=== PATIENT | female | born 1960 | race Caucasian/White ===

== ENCOUNTER 2019-09-03 12:38 | Outpatient (CLI) | payer OTHER, SELFPAY ==
--- NOTE | ~2019-09-03 | DEXA_ITS ---
Bone Density Report Name: Lolita Castillo Age: 58 Sex: Female Ethnicity: White Date of : 1960 Indication: postmenopausal; height loss; hysterectomy; Referring Provider: RALF TOWNSEND Study: Bone densitometry was performed. Exam Date: September 03, 2019 Accession number: [id number] Bone Density: Region BMD T-score Z-score Classification AP Spine (L1-L4) 0.724 -2.9 -1.5 Osteoporosis Femoral Neck (Left) 0.531 -2.9 -1.6 Osteoporosis Total Hip (Left) 0.731 -1.7 -0.7 Osteopenia Total Hip Bilateral Avg 0.723 -1.8 -0.8 Osteopenia Femoral Neck (Right) 0.531 -2.9 -1.6 Osteoporosis Total Hip (Right) 0.715 -1.9 -0.9 Osteopenia World Health Organization criteria for BMD impression classify patients as: Normal (T-score at or above -1.0), Osteopenia (T-score between -1.0 and -2.5), or Osteoporosis (T-score at or below -2.5). 10-year Fracture Risk: FRAX not reported because: Some T-score for Spine Total or Hip Total or Femoral Neck at or below -2.5 Clinical Information Provided by Patient: Smokes Has used the following medications: Vitamin D, Calcium Has the following medical conditions: Hysterectomy Patient maximum height was 67 Menopause Age: 24 No regular weight bearing exercise Drinks caffeinated beverages Onset of menses at age 10 Number of children 3 Impression: The patient has osteoporosis, based on the Total Spine T-score. The patient has risk factors, including: smoking. Discussion: INCREASED RISK OF FRACTURE. BONE DENSITY IS UNDESIRABLY LOW AT ONE OR MORE SKELETAL SITES, CONSISTENT WITH POSTMENOPAUSAL OSTEOPOROSIS. This patient's lowest T-score meets the World Health Organization's (WHO) criteria for osteoporosis at one or more sites (T-score -2.5 or below). In untreated patients, the risk of osteoporotic fracture increases approximately two-fold for each 1.0 SD decrease in T-score. Low bone density is not the only risk factor for fracture; also consider factors such as patient's age, frailty or poor health, risk of falling, risk of injury, previous osteoporotic fracture, family history of osteoporosis, cigarette smoking, low body weight, etc. Not everyone with low bone mineral density has osteoporosis; osteomalacia and other metabolic bone disorders should also be considered. Patients who have osteoporosis should be evaluated for specific diseases and conditions (secondary causes) that may cause or contribute to bone loss. The [place] [employer]ocr[employer] (AACE) and National Osteoporosis Foundation (NOF) recommend pharmacologic intervention for all postmenopausal women whose T-score is in this range. The patient should follow a healthful lifestyle (good nutrition with adequate calcium and vitamin D, and appropriate weight-bearing exercise). Follow-Up: Consider a repeat BMD and Vertebral Fractu
== END 2019-09-03 12:39 | disposition home or self-care (01) ==
PROVIDERS: PCP Internal Medicine; Visit Provider Orthopaedic Surgery
DX: M81.0 Age-related osteoporosis without current pathological fracture (principal); M85.852 Other specified disorders of bone density and structure, left thigh; M85.851 Other specified disorders of bone density and structure, right thigh
CPT/HCPCS: 77080

== ENCOUNTER 2019-09-23 09:16 | Outpatient (CLI) | payer OTHER, SELFPAY ==
--- NOTE | 2019-09-23 09:18 | ECG_ITS ---
Measurements Intervals [place] Rate: 63 P: 41 MA: 153 QRS: 21 QRSD: 105 T: 29 QT: 409 QTc: 422 Interpretive Statements SINUS RHYTHM INCOMPLETE RIGHT BUNDLE BRANCH BLOCK BASELINE ARTIFACT- I, II, III, AVR, AVL, AVF, V1-V6 BORDERLINE ECG Electronically Signed On 09-23-2019 9:30:54 CDT by Nahun Box D.O.
[2019-09-23 10:02] LABS: Blood Urea Nitrogen 15 mg/dL (7-17); Calcium 9.5 mg/dL (8.4-10.2); Carbon Dioxide 30 mmol/L (22-30); Chloride 102 mmol/L (98-107); Estimated Glomerular Filt Rate > 60; Glucose 103 mg/dL (65-105); Potassium 3.9 mmol/L (3.4-5.0); Sodium 139 mmol/L (137-145)
== END 2019-09-23 09:17 | disposition home or self-care (01) ==
LOC: ANHSURGERY 09:18
PROVIDERS: Anesthesiology; PCP Internal Medicine; Visit Provider Orthopaedic Surgery
DX: Z01.818 Encounter for other preprocedural examination (principal); I10 Essential (primary) hypertension
CPT/HCPCS: 36415; 80048; 93005

== ENCOUNTER 2019-09-30 01:36 | Day surgery (SDC) | payer OTHER, SELFPAY ==
[2019-09-16 10:26] VITALS: BMI 24.2
[2019-09-30] VITALS (8 sets, daily range): BP systolic 117–137; BP diastolic 69–75; PULSE 61–74; RESP 12–16; TEMP 36.6–36.7; O2SAT 92–100
[2019-09-30] MEDS: LACTATED RINGERS 1,000 ML 30 ML IV CONT ×2 (06:45→08:13)
--- NOTE | 2019-09-30 06:50 | WPDANESEPPF ---
Anes - Initial Pre Proc Eval Procedure: Operation Date: 09/30/19 07:30 Proposed Procedures p Debridement Left Lateral Epicondyle - Chi Lynch MD Date/Time: 09/30/19 06:50 Surgeon: Chi Lynch MD Pre Op Diagnosis: Left Lateral Epicondylitis Patient Data Age: 58 Gender: F Height: 5 ft 6 in Weight: 70.9 kg Allergies Allergy/AdvReac Type Severity Reaction Status Date / Time No Known Allergies Allergy Verified 09/30/19 06:25 Home Medications Medication Instructions Recorded Confirmed Type aspirin 81 mg tablet,delayed 81 mg PO DAILY 09/11/19 09/16/19 History release carvedilol 12.5 mg tablet 12.5 mg PO Q12H 09/11/19 09/16/19 History cholecalciferol (vitamin D3) 1,250 50,000 unit PO WEEKLY 09/11/19 09/16/19 History mcg (50,000 unit) capsule mecobalamin (vitamin B12) 1,000 1,000 mcg PO DAILY 09/11/19 09/16/19 History mcg chewable tablet valsartan-hydrochlorothiazide 1 tablet PO DAILY 09/16/19 09/16/19 History Patient hx anesthesia problems: none Family hx anesthesia problems: none PMFSH Past Medical History Medical History Anxiety GERD (gastroesophageal reflux disease) Hypertension Osteoporosis Surgical History Surgical History History of carpal tunnel surgery Right hand-2018 Dr. Lynch History of hysterectomy 1987 History of neck surgery Fusion-2004 Dr. Segundo Trigger finger of right hand 2016 Dr. Hylton Trigger thumb, right thumb 2018 Dr. Lynch Family History Family History Mother Diabetes mellitus Hypertension Cerebrovascular accident Heart disease Sibling Hypertension Lupus Cancer Father Cancer Heart disease Kidney disease Social History Social History Smoking status: Current every day smoker Tobacco type: cigarettes Additional smoking assessment comments: Smoking since 1975 Alcohol intake: never Additional living arrangements comments: Sister-Gina Bermeo, Grandson- Patrick Castillo Gender identity (if verbalized by the patient): Female Anes - Eval Final PreProcedure Day of Procedure 09/30/19 06:50 Patient weight: normal Heart: regular rate and rhythm Lungs: decreased breath sounds Airway: Mallampati scale class II Neurological: alert and oriented Last oral intake: >/= 8 hours ASA classification: III Emergent: no Anesthetic plan: proceed Anesthesia type and monitoring: general LMA and standard monitoring Informed Consent: The patient's anesthetic plan and its attendant risks and benefits were discussed with the patient/family/POA. Questions were solicited and answers provided to the satisfaction of the patient/family/POA.
[2019-09-30] MEDS: SCOPOLAMINE 1.5 MG PATCH TRANSDERM (06:54)
--- NOTE | 2019-09-30 07:13 | WPDHPUPDATE1 ---
History and Physical Update Update Date/Time: 09/30/19 07:13 History and Physical has been reviewed, including an updated exam of the patient. There are NO changes in the patient's condition. Risks, benefits, and alternatives have been discussed and questions answered. Patient agrees to proceed with procedure.
[2019-09-30] MEDS: ceFAZolin 2 GM/D5W 50 ML 2 GM/50 ML BAG IVPB (07:23)
[2019-09-30] MEDS: BUPIVACAINE/EPINEPHRINE 0.25% 50 ML VIAL INFILTRATE (08:00)
--- NOTE | 2019-09-30 08:25 | PM.PROC ---
Procedure Note - Detailed Date of procedure: 09/30/19 Pre-op diagnosis: Left Lateral Epicondylitis Post-op diagnosis: same Procedure performed: Debridement left lateral epicondyle with partial epicondylectomy Description of procedure: Patient was identified proper site identified. She was taken to the operating room and transferred to the OR table placing her supine taking care to pad her torso and extremities. After general anesthetic induction and intubation, a nonsterile tourniquet was placed high in the left arm. Left upper extremity was prepped and draped in the usual sterile fashion. Extremities exsanguinated and the tourniquet was inflated to 200 mmHg remaining up for about 20 minutes. Several cc of 0.25% Marcaine and epinephrine solution was injected into the subcutaneous tissue in the area of the incision. A longitudinal incision was made over the common extensor origin at the left lateral condyle. Subcutaneous tissue was sharply dissected down to the deep fascia. The fascia was divided exposing the common extensor origin. There is an area of hyperemia and degenerative tendon consistent with this condition. Longitude incision was made in line with fibers of the tendon and a 10 was also released off the medial epicondyle. Degenerative tissue was removed and prominent portion medial epicondyle was removed with a rongeur. The wound was irrigated with sterile antibiotic solution. The tendon edges reapproximated with four 0 Monocryl suture. The deeper layers of the subcu reapproximated for Monocryl. Skin reapproximated with three 0 V lock and tissue adhesive. Sterile dressing was applied. Tourniquet was released. She was awakened, extubated and taken to recovery area in stable condition. There were no known intraoperative complications. Estimated blood loss was negligible. She received perioperative antibiotics. Anesthesia: GLMA Surgeon: Chi Lynch MD Assistant Corporate Controller: Honey Swanson Estimated blood loss (mL): 1 Tourniquet time (min): 20 Drains: No Packing: No Pathology: none sent Complications: No immediate complications Condition: stable Disposition: PACU
== END 2019-09-30 10:02 | disposition home or self-care (01) ==
PROVIDERS: PCP Internal Medicine; Visit Provider Orthopaedic Surgery
PROC: (CPT 24110; principal; 2019-09-30 07:30)
DX: M77.12 Lateral epicondylitis, left elbow (principal); I10 Essential (primary) hypertension; K21.9 Gastro-esophageal reflux disease without esophagitis; M81.0 Age-related osteoporosis without current pathological fracture; F41.9 Anxiety disorder, unspecified; Z79.82 Long term (current) use of aspirin; Z98.1 Arthrodesis status; F17.210 Nicotine dependence, cigarettes, uncomplicated
CPT/HCPCS: 24359; A4565; A9270; J0690; J1100; J1170; J2250; J2405; J2704; J3010; J7120

== ENCOUNTER 2022-12-07 10:06 | Outpatient (CLI) | payer MEDICARE, MEDICAID, SELFPAY ==
--- NOTE | 2022-12-07 10:59 | ECG_ITS ---
Measurements Intervals [place] Rate: 51 P: -7 MT: 306 QRS: 262 QRSD: 108 T: 42 QT: 428 QTc: 397 Interpretive Statements SINUS BRADYCARDIA INCOMPLETE RIGHT BUNDLE BRANCH BLOCK BASELINE ARTIFACT- I, II, III, AVR, AVL, AVF, V1-V6 BORDERLINE ECG COMPARED TO ECG 09/23/2019 09:44:36 HEART RATE HAS DECREASED Electronically Signed On 12-07-2022 12:06:44 CDT by Nahun Box D.O.
[2022-12-07 11:54] LABS: Basophils Percent Auto 0.3 % (0.2-1.2); Eosinophils Absolute Auto 0.1 K/mm3 (0-0.3); Eosinophils Percent Auto 1.2 % (0-4.4); Hematocrit 37.2 % (37.0-47.0); Hemoglobin 11.8 g/dL (12.0-15.0); Immature Granulocyte Absolute 0.04 K/mm3 (0.00-0.031); Immature Granulocyte Percent A 0.6 % (0-0.5); Lymphocytes Absolute Auto 1.82 K/mm3 (0.9-3.2); Lymphocytes Percent Auto 27.5 % (18.3-44.2); Mean Corpuscular HGB Conc 31.7 g/dl (32-36); Mean Corpuscular Hemoglobin 29.8 pg (26-34); Mean Corpuscular Volume 93.9 fl (80-100); Mean Platelet Volume 9.5 fl (7.4-10.4); Monocytes Absolute Auto 0.5 K/mm3 (0.1-0.6); Monocytes Percent Auto 7.7 % (2.6-8.5); Neutrophils Absolute Auto 4.2 K/mm3 (1.3-6.7); Neutrophils Percent Auto 62.7 % (45.5-73.1); Platelet Count Result 228 k/mm3 (150-375); Red Blood Count 3.96 M/mm3 (4.2-5.4); Red Cell Distribution Width 12.9 % (11.5-14.5); White Blood Count 6.6 K/mm3 (4.5-10.0)
[2022-12-07 12:05] LABS: Albumin Level 4.3 g/dL (3.5-5.1)
[2022-12-07 12:07] LABS: Anion Gap 3 mmol/L (8-16); Blood Urea Nitrogen 29 mg/dL (7-17); Calcium 9.8 mg/dL (8.4-10.2); Carbon Dioxide 33 mmol/L (22-30); Chloride 102 mmol/L (98-107); Estimated Glomerular Filt Rate 50; Glucose 106 mg/dL (65-110); Potassium 4.3 mmol/L (3.4-5.0); Sodium 138 mmol/L (137-145)
[2022-12-07 12:58] LABS: Urine Cotinine NEGATIVE
== END 2022-12-07 10:07 | disposition home or self-care (01) ==
LOC: ANHSURGERY 10:11
PROVIDERS: Anesthesiology; Visit Provider Orthopaedic Surgery
DX: Z01.812 Encounter for preprocedural laboratory examination (principal); Z01.810 Encounter for preprocedural cardiovascular examination; M17.11 Unilateral primary osteoarthritis, right knee; I45.10 Unspecified right bundle-branch block; R00.1 Bradycardia, unspecified; I10 Essential (primary) hypertension; K21.9 Gastro-esophageal reflux disease without esophagitis
CPT/HCPCS: 36415; 80048; 80307; 82040; 83036; 85025; 86850; 86900; 86901; 87081; 93005